=== PATIENT | male | born 1990 | race Caucasian/White ===

== ENCOUNTER 2018-07-02 00:30 | Emergency (ER) | payer OTHER, SELFPAY ==
[2018-07-02 00:31] VITALS: BP 130/86; PULSE 78; RESP 18; TEMP 36.6; O2SAT 98; BMI 27.2
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
== END 2018-07-02 00:37 | disposition home or self-care (01) ==
PROVIDERS: Emergency Provider Emergency Medicine
DX: Z71.1 Person with feared health complaint in whom no diagnosis is made (principal)
CPT/HCPCS: 99282